=== PATIENT | female | born 1960 | race Caucasian/White ===

== ENCOUNTER 2017-01-06 11:01 | Emergency (ER) | payer OTHER ==
[~2017-01-06] VITALS: Ht 152.4 cm; Wt 65.0 kg
[2017-01-06 11:10] VITALS: Ht 152.4 cm; Wt 65.0 kg
[2017-01-06] MEDS ORDERED: BEN25 PO (11:25)
[2017-01-06] MEDS ORDERED: CEPH-443 PO (11:25)
[2017-01-06] MEDS ORDERED: PRED20TA PO (11:25)
--- NOTE | 2017-01-06 11:27 | ERD ---
ER Documentation Chief Complaint Date/Time DATE: 01/06/17 TIME: 11:26 Chief Complaint LEFT HAND SWOLLEN & ITCHY X 3 DAYS HPI This 56-year-old female presents with some itchiness and swelling of her left hand after getting bit by spider 2 days ago. She denies any fevers of the chest pain. Her tetanus is up-to-date approximately 1 year ago ROS All systems reviewed and are negative except as per history of present illness. Medications Home Meds Active Scripts Prednisone* (Prednisone*) 20 Mg Tab, 40 MG PO DAILY for 4 Days, TAB Prov:LUIS MANUEL MARINELLI MD 01/06/17 Diphenhydramine Hcl* (Benadryl*) 25 Mg Cap, 25 MG PO Q6, #15 CAP Prov:LUIS MANUEL MARINELLI MD 01/06/17 Cephalexin* (Keflex*) 500 Mg Capsule, 500 MG PO QID for 7 Days, CAP Prov:LUIS MANUEL MARINELLI MD 01/06/17 Allergies Allergies: Coded Allergies: No Known Allergy (Unverified , 01/06/17) PMhx/Soc Medical and Surgical Hx: pt denies Surgical Hx Hx Cardiac Disorders: Yes (HTN) Hx Alcohol Use: No Hx Substance Use: No Hx Tobacco Use: No Smoking Status: Never smoker Physical Exam Vitals Vital Signs Date Time Temp Pulse Resp B/P Pulse Ox O2 Delivery O2 Flow Rate FiO2 01/06/17 11:10 98.0 91 20 134/89 99 Physical Exam Const: [] Alert, not ill-appearing Head: Atraumatic Eyes: Normal Conjunctiva ENT: Normal External Ears, Nose and Mouth. Neck: Full range of motion..~ No meningismus. Resp: Clear to auscultation bilaterally Cardio: Regular rate and rhythm, no murmurs Abd: Soft, non tender, non distended. Normal bowel sounds Skin: No petechiae or rashes Back: No midline or flank tenderness Ext: No cyanosis, or edema. There is some swelling and slight irritation on the dorsum of the left hand. Is no restricted range of motion weakness, streaking, fluctuance or discharge Neur: Awake and alert Psych: Normal Mood and Affect Procedures/MDM Patient presents with what appears to be primarily local reaction to an insect bite on her hand for last 2-3 days. Doubt significant infection but given the slight irritation and redness she will be treated with a short course prednisone and Benadryl and Keflex and instructions for ice and further observation at home. Is no evidence of fracture, tenosynovitis, abscess, anaphylaxis, additional emergent complications due to her insect bite. The patient was stable with no new complaints during the ER course. Clinically, there is no current evidence to suggest meningitis, sepsis, acute abdomen, pneumonia, acute coronary syndrome, pulmonary embolism, or any other emergent condition appearing to require further evaluation or hospitalization. The patient should certainly return for any new or worsening symptoms per the aftercare instructions. They should otherwise follow-up with her primary care doctor for reevaluation this week. Departure Diagnosis: Primary Impression: Insect bite Encounter type: initial encounter Qualified Code: W57.XXXA - Insect bite, initial encounter Condition: Stable Patient Instructions: Allergic Reaction, Insect (Local) Additional Instructions: IAIN IRIZARRY. Cheque otro vez con huff doctor primario en el proximo nice or regresa para mas o nueva simptomas. LUIS MANUEL MARINELLI MD Jan 06, 2017 11:27
== END 2017-01-06 12:03 | disposition home or self-care (01) ==
LOC: FTE 11:01
DX: S60.562A Insect bite (nonvenomous) of left hand, initial encounter (principal); I10 Essential (primary) hypertension; W57.XXXA Bitten or stung by nonvenomous insect and other nonvenomous arthropods, initial encounter; Y92.9 Unspecified place or not applicable
CPT/HCPCS: 99284

== ENCOUNTER 2017-11-02 21:34 | Emergency (ER) | END 2017-11-03 00:20 | disposition left against medical advice (07) ==

== ENCOUNTER 2018-05-01 18:18 | Emergency (ER) | END 2018-05-01 22:32 | disposition home or self-care (01) ==

== ENCOUNTER 2019-04-09 03:00 | Emergency (ER) | payer OTHER ==
[~2019-04-09] VITALS: Ht 152.4 cm; Wt 64.6 kg
[~2019-04-09 03:00] MED LIST: AMLO-145 PO; ASPI-1044 PO; BEN25 PO; CEPH-443 PO; LOPE2CAP PO; LOSA100T15 PO; NAPR-985 PO; NITR0.4T32 SL; ONDA4TAB14 PO; PRED20TA PO
[2019-04-09 03:01] VITALS: Ht 152.4 cm; Wt 64.6 kg
[2019-04-09] MEDS ORDERED: ONDANSETRON (ODT) 4 MG TAB ODT STA (03:24)
[2019-04-09] MEDS ORDERED: FAMOTIDINE 20 MG TAB PO ONE (03:30)
[2019-04-09 05:04] VITALS: BP 113/79; PULSE 83; RESP 26
== END 2019-04-09 05:05 | disposition home or self-care (01) ==
LOC: E/R 03:00
DX: R10.12 Left upper quadrant pain (principal); I10 Essential (primary) hypertension; R11.2 Nausea with vomiting, unspecified; R19.7 Diarrhea, unspecified; Z79.82 Long term (current) use of aspirin
CPT/HCPCS: Z7502; Z7610; 99283